=== PATIENT | female | born 1975 | race African-American/Black ===

== ENCOUNTER 2022-10-11 06:47 | Outpatient (CLI) | payer OTHER, SELFPAY ==
--- NOTE | ~2022-10-11 | MR_ITS ---
MRI of the left knee Clinical history: Pain Technique: Coronal proton density and proton density-weighted images, sagittal proton-density and T2 fat-sat images, and axial proton-density fat-saturated images were acquired. Findings: Anterior and posterior cruciate ligaments are intact. Medial collateral ligament and the la teral collateral ligament complex are intact. Popliteus tendon is intact. Medial and lateral menisci are intact, without definite tear. There is patchy mild chondromalacia along the lateral femoral condyle. There is focal high-grade mahnaz dromalacia at the central aspect of the medial femoral condyle. There is mild chondromalacia at the c entral aspect of the femoral trochlea. Patellar articular cartilage is well preserved. Bone marrow si gnals are unremarkable. Minimal patellar spurring noted. Extensor mechanism is intact. Large joint effusion present with moderate to large Lane's cyst. Impression: Mild degenerative change, as detailed above. Large joint effusion with moderate to large Lane's cyst. No ligamentous injury or meniscal tear identified. Reviewed, dictated and finalized at location . 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 Large joint effusion with moderate to large Lane's cyst. No ligamentous injury or meniscal tear identified.
== END 2022-10-11 06:48 | disposition home or self-care (01) ==
PROVIDERS: Visit Provider Orthopaedic Surgery
DX: M25.562 Pain in left knee (principal); M25.462 Effusion, left knee; M71.22 Synovial cyst of popliteal space [Baker], left knee
CPT/HCPCS: 73721